=== PATIENT | female | born 1960 | race Caucasian/White ===

== ENCOUNTER 2017-09-21 05:40 | Day surgery (SDC) | payer OTHER ==
[2017-09-21] MEDS ORDERED: FENTAnyl 50 MCG/ML VIAL (17:29)
[2017-09-21] MEDS ORDERED: MIDAZOLAM 1 MG/ML 2 ML INJ ×3 (17:29)
== END 2017-09-21 10:00 | disposition home or self-care (01) ==
LOC: GIL 05:40
DX: K44.9 Diaphragmatic hernia without obstruction or gangrene (principal); K21.9 Gastro-esophageal reflux disease without esophagitis; K29.60 Other gastritis without bleeding; E78.5 Hyperlipidemia, unspecified
CPT/HCPCS: 43239; 87081